=== PATIENT | male | born 1990 | race Caucasian/White ===

== ENCOUNTER 2017-02-12 15:44 | Observation (INO) | payer SELFPAY ==
--- NOTE | ~2017-02-12 | DS ---
Unit #: [id number] #: [id number] Patient: AMANDA HOU [id number] [address] [address] [id number] MR#: [id number] NAME: AMANDA HOU ROOM: 226 Age: 26 Sex: M Admission Date: 02/12/2017 : 1990 Discharge Date: 02/13/2017 Attending Physician: Molina Marie M.D. Primary Care Physician: Primary Care Physician No DISCHARGE SUMMARY REASON FOR ADMISSION 1. Bloody/discharge from penis. 2. Poorly-controlled diabetes. HISTORY/HOSPITAL COURSE Please see History and Physical for complete details. Patient underwent routine laboratory studies, many of them are currently pending including RPR as well as urine for gonorrhea and chlamydia which is currently pending at the present time. He received Zithromax as well as Rocephin while he was here. His discharge has resolved. He does have some discomfort with urination and, therefore, I will give him a prescription for Pyridium, doxycycline, as well at time of discharge. He tells me that he does not have a primary care physician, therefore, we will give him the phone number for [facility] for appropriate followup. I have also given a prescription for metformin 850 mg p.o. b.i.d. at time of discharge. His hemoglobin A1c is currently pending at the time of this dictation. In the past, he was diagnosed with diabetes and medications were later discontinued after his blood sugars were persistently low. FINAL DISCHARGE DIAGNOSES 1. Diabetes type 2. 2. Penile discharge, likely secondary to STD with cultures currently pending. 3. Noncompliance. 4. Obesity. FINAL DISCHARGE MEDICATIONS 1. Metformin 850 mg p.o. b.i.d. 2. Doxycycline 100 mg p.o. b.i.d. times 7 days. 3. Pyridium 200 mg p.o. b.i.d. times 3 days. CONDITION ON DISCHARGE Stable. DISCHARGE DISPOSITION Home. Dictated by... Unit #: [id number] #: [id number] Patient: AMANDA HOU Joanne Velázquez/romero TD: 02/14/2017 20:59 JOB #: [id number] DISCHARGE SUMMARY Page 1 of 1 X Molina Marie MD DISCHARGE SUMMARY
--- NOTE | ~2017-02-12 | HP ---
Unit #: [id number] #: [id number] Patient: AMANDA HOU [id number] [address] [place], [place] [address] [id number] MR#: [id number] NAME: AMANDA HOU ROOM: Age: 26 Sex: M Admission Date: 02/12/2017 : 1990 Attending Physician: Danna Ellison M.D. HISTORY AND PHYSICAL CHIEF COMPLAINT Penile discharge, uncontrolled diet-controlled diabetes mellitus. HISTORY This pleasant 26-year-old male with a history of diet-controlled diabetes mellitus is admitted for penile discharge and hyperglycemia. The patient states that he was well until recently when he developed some blurred vision. Four days ago, he developed urinary frequency and then bloody-appearing, yellow penile discharge with dysuria. He presented to the emergency department with a low-grade temperature, although he denies fever, sweats, or chills. Serum glucose 392. In the ER, he was bolused with two liters of saline and given a gram of Zithromax and two grams of IV Rocephin, and referred for admission. PAST MEDICAL HISTORY 1. Admission October 09, 2014, for a one-time seizure. 2. Adult-onset diabetes mellitus diagnosed October 09, 2014, at this facility. Patient states that he took oral hypoglycemics until eight months ago when these were discontinued as his Accu-Cheks were running 110 and lower. 3. I and D of the hand as a child. ALLERGIES None. HOME MEDICATIONS None. FAMILY HISTORY Diabetes mellitus. SOCIAL HISTORY The patient lives in a room and rents out the other rooms to roommates from [place]. He himself is from [place]. He is with three children. He smokes occasional tobacco and drinks occasional alcohol. REVIEW OF SYSTEMS Notable for urinary frequency, dysuria, bloody penile discharge, headache, blurred vision, diabetes, one-time seizure, and hand surgery. All other systems were reviewed and are otherwise negative. PHYSICAL EXAMINATION GENERAL: A pleasant, obese, 26-year-old male currently in no acute Unit #: [id number] #: [id number] Patient: AMANDA HOU distress. VITAL SIGNS: Temperature 99.1, pulse 90, respirations 16, blood pressure 153/58, and O2 saturation is 98% on room air. HEENT: Eyes PERRLA. Extraocular muscles are intact. Pharynx is benign. NECK: Supple without adenopathy or thyromegaly. CHEST: Clear. CARDIAC: Normal S1 and S2, without S3, S4, or murmur. ABDOMEN: Bowel sounds are present. No hepatosplenomegaly, tenderness, or masses. GENITOURINARY: Uncircumcised penis. When the foreskin is pulled back, the patient has copious amounts of yellowish penile discharge. Testicles are descended bilaterally and nontender. EXTREMITIES: Without clubbing, cyanosis, or edema. Pedal pulses are present. No ulcers on the feet. NEUROLOGIC: Patient is awake, alert, and oriented. Cranial nerves are intact. Equal strength throughout. BACK: Without CVA tenderness. DIAGNOSTIC STUDIES LABORATORY: Hematocrit is 47.4, white blood count is 10.7, and normal platelet count. SMA-12 with glucose of 392 and AST is 58. Chlamydia and GC probes are pending. Urinalysis with positive leukocyte esterase, protein, and glucose, 2+ blood with 25-50 red cells and enumerable white cells, and no bacteria. IMAGING: CT scan of the pelvis with IV contrast negative. ASSESSMENT 1. Bloody penile discharge likely representing gonorrhea. 2. Diet-controlled adult-onset diabetes mellitus with uncontrolled diabetes mellitus. PLANS 1. P.o. Zithromax given in the ER. 2. Continue Rocephin pending urine cultures and STD screening. 3. Obtain HIV and RPR. 4. Sliding scale insulin for now. Can transition to metformin at discharge. Will check a hemoglobin A1c. 5. Patient desires the name of a urologist at the time of discharge for elective circumcision. 1. Dictated by Joanne Smith/justine TD: 02/12/2017 21:32 JOB #: [id number] Unit #: [id number] #: [id number] Patient: AMANDA HOU HISTORY AND PHYSICAL Page 1 of 1 X Riri Eddy MD X HISTORY AND PHYSICAL
--- NOTE | ~2017-02-12 | CT105 ---
[facility] A Service of [facility] RADIOLOGY TEXT RESULTS PATIENT: AMANDA HOU LOCATION: [facility] : [birth year] UNIT #: [id number] AGE: [address]: Molina Marie MD SEX: M ORDER DR: [id number] [facility] [address]. [place], [place] [address] [id number] MR#: [id number] Acc #: [id number] NAME: AMANDA HOU : 1990 SEX: M STUDY DATE/TIME: 02/12/2017 17:46 UNIT: [facility] ROOM: [facility] STUDY DESCRIPTION: CT Pelvis W Cont Attending Physician: Riri Eddy M.D. Ordering Physician: Danna Ellison M.D. Primary Care Physician: Primary Care Physician No MEDICAL IMAGING REPORT This report is preliminary unless electronic signature is present EXAM CT pelvis without contrast HISTORY Penile discharge, blood in urine since 02/09/2017. FINDINGS This CT exam was performed with one or more of the following radiation dose reduction techniques: Automatic exposure control, adjustment of mA and/or kV according to patient size, and iterative reconstruction. Axial images performed through the pelvis following IV contrast. Multiplanar reconstructed images reviewed at a workstation. Visualized small and large bowel appears normal. The appendix is normal. Bladder and prostate unremarkable. Normal vascular enhancement. Osseous structures and soft tissues appear normal. No evidence of renal stone or obstruction. Visualized genitalia unremarkable. IMPRESSION Normal CT pelvis. Dictated by... Brittani Jara M.D. THIS IS AN ELECTRONICALLY VERIFIED REPORT Brittani Jara M.D. at 02/13/2017 3:32 PM SHARON/hien TD: 02/13/2017 03:44 JOB #: [id number] [facility] A Service of [facility] RADIOLOGY TEXT RESULTS PATIENT: AMANDA HOU LOCATION: [facility] : [birth year] UNIT #: [id number] AGE: [address]: Molina Marie MD SEX: M ORDER DR: MEDICAL IMAGING REPORT Page 1 of 1 COPY
--- NOTE | ~2017-02-12 | BMI ---
[facility] DATE: 02/13/17 Patient: AMANDA HOU Physician: OFELIA Address: [address] [place] [address] Room/Bed: [address] [place] [address], Zip: [place] [address] Admit Date: 02/12/17 Date of : [birth year] Height: 5 10 Weight: 283 128.8 HIGH BMI NOTE: DX: 26 Y.O. MALE ADMITTED FOR UNCONTROLLED DM, PENILE DISCHARGE ANTHROPOMETRICS: 5'10", WT: 283# (129 KG), BMI: 40.6 DIET: CC INTERVENTION: 1. CC DIET RECOMMENDATIONS: 1. CONTINUE CURRENT DIET ORDER ABOVE TO PROMOTE GRADUAL WEIGHT LOSS TOWARDS HEALTHY BMI (19.0-25.0) OR +/-10%IBW RD WILL F/U PER PROTOCOL Respectfully, DANA GOODE MS, RD, LD [facility] cc: client file
[~2017-02-12 15:44] MED LIST: GLYBURIDE2.5 M1 PO; METFORMIN HCL500 M1 PO; NO MEDICATIONS
[2017-02-12 15:48] LABS: URINE SOURCE CLEAN CATCH
[2017-02-12 15:53] LABS: URINE APPEARANCE CLOUDY; URINE BILIRUBIN NEG (NEG); URINE BLOOD 2+ (NEG); URINE COLOR YELLOW; URINE GLUCOSE >1000 MG/DL (NEG); URINE KETONE NEG (NEG); URINE LEUKOCYTE ESTERASE 2+ (NEG); URINE NITRATE NEG (NEG); URINE PROTEIN 1+ (NEG); URINE SPECIFIC GRAVITY 1.038 (1.003-1.035)
[2017-02-12 15:57] LABS: CULTURE INDICATED? YES; U HYALINE CASTS AUWI 0-2 /[LPF]; URBCS1 AUWI 25-50 /[HPF] (0-2); URINE BACTERIA AUWI NEG (NEGATIVE); URINE SQUAMOUS EPITHELIAL CELL NONE SEEN /[HPF]; UWBCS1 AUWI INNUM (0-5)
[2017-02-12 16:11] LABS: BASOPHIL# 0.1 X10e3 (0-0.3); BASOPHIL% 0.8 % (0-2.5); EOSINOPHIL# 0.2 X10e3 (0-0.7); EOSINOPHIL% 1.9 % (0.0-7.0); HEMATOCRIT 47.4 % (38.0-50.0); LYMPHOCYTE# 2.5 X10e3 (1.0-3.5); LYMPHOCYTE% 23.1 % (17.0-45.0); MEAN CELL VOLUME 91.1 FL (83-96); MEAN CORPUSCULAR HEMOGLOBIN 30.8 PG (28-34); MEAN CORPUSCULAR HGB CONC 33.8 g/dL (30-36); MONOCYTE# 0.6 X10e3 (0-1.0); MONOCYTE% 6.1 % (3.0-12.0); NEUTROPHIL# 7.3 X10e3 (1.5-7.1); NEUTROPHIL% 68.1 % (40-75); PLATELET COUNT 183 X10e3 (140-420); RED CELL DISTRIBUTION WIDTH 13.2 % (11.0-15.5); WHITE BLOOD COUNT 10.7 X10e3 (4.0-10.5)
[2017-02-12 16:15] LABS: DIFF IND YES
[2017-02-12 16:33] LABS: ALBUMIN SERUM 4.2 g/dL (3.5-5.0); BILIRUBIN,TOTAL 0.7 mg/dL (0.2-2.0); BUN/CREATININE RATIO 17.5; CALCIUM SERUM 8.9 mg/dL (8.4-10.2); CREATININE SERUM 0.8 mg/dL (0.6-1.4); GLOM FILT RATE Estimated 121.6 mL/min (>60); POTASSIUM 4.1 mmol/L (3.5-5.1); PROTEIN TOTAL SERUM 7.7 g/dL (6.0-8.3)
[2017-02-12 16:53] LABS: PLATELET ESTIMATE NORMAL (NORMAL)
[2017-02-13 07:14] LABS: BASOPHIL% 0.4 % (0-2.5); EOSINOPHIL# 0.3 X10e3 (0-0.7); EOSINOPHIL% 3.3 % (0.0-7.0); HEMATOCRIT 43.5 % (38.0-50.0); HEMOGLOBIN 14.5 gm/dL (13.0-16.0); LYMPHOCYTE# 2.9 X10e3 (1.0-3.5); LYMPHOCYTE% 35.2 % (17.0-45.0); MEAN CELL VOLUME 91.2 FL (83-96); MEAN CORPUSCULAR HEMOGLOBIN 30.3 PG (28-34); MEAN CORPUSCULAR HGB CONC 33.2 g/dL (30-36); MEAN PLATELET VOLUME 9.7 FL (6.5-11.5); MONOCYTE# 0.6 X10e3 (0-1.0); MONOCYTE% 7.3 % (3.0-12.0); NEUTROPHIL# 4.5 X10e3 (1.5-7.1); NEUTROPHIL% 53.8 % (40-75); PLATELET COUNT 165 X10e3 (140-420); RED BLOOD COUNT 4.77 X10e (3.90-5.60); RED CELL DISTRIBUTION WIDTH 13.1 % (11.0-15.5); WHITE BLOOD COUNT 8.4 X10e3 (4.0-10.5)
[2017-02-13 07:22] LABS: DIFF IND NO
[2017-02-13 07:59] LABS: BUN/CREATININE RATIO 18.33; CALCIUM SERUM 8.1 mg/dL (8.4-10.2); CREATININE SERUM 0.6 mg/dL (0.6-1.4); GLOM FILT RATE Estimated 136.9 mL/min (>60); POTASSIUM 3.8 mmol/L (3.5-5.1)
[2017-02-13] MEDS ORDERED: TYL325 PO (12:07)
[2017-02-13] MEDS ORDERED: DOXYCYCLINE HY100 M3 PO (12:08)
[2017-02-13] MEDS ORDERED: GLUCOPHAGE850 MG PO (12:10)
[2017-02-13] MEDS ORDERED: PYRIDIUM PO (12:10)
[2017-02-15 02:31] LABS: CHLAMYDIA TRACH Not Detected (Not Detected); N GONOR Detected (Not Detected)
== END 2017-02-13 14:16 | disposition home or self-care (01) | DRG 696 ==
LOC: CED 15:44 → CEDOF 21:15 → C2A 02-13 00:01
PROVIDERS: Internal Medicine; Nurse Practitioner Family
DX: R36.9 Urethral discharge, unspecified (principal); E11.65 Type 2 diabetes mellitus with hyperglycemia; Z91.14 Patient's other noncompliance with medication regimen; E66.9 Obesity, unspecified; Z83.3 Family history of diabetes mellitus; Z79.2 Long term (current) use of antibiotics; Z72.0 Tobacco use; R35.0 Frequency of micturition; H53.8 Other visual disturbances
CPT/HCPCS: 36415; 72193; 80048; 80053; 81003; 82947; 83036; 85025; 86592; 87086; 87088; 87491; 87591; 87806; 96360; 96361; 96365; 99285; G0378; J0696; J1815; Q9967

== ENCOUNTER → 2017-02-21 | Outpatient (CLI) | payer SELFPAY ==
[~2017-02-21] MED LIST changes: +DOXYCYCLINE HY100 M3 PO; +GLUCOPHAGE850 MG PO; +PYRIDIUM PO; +TYL325 PO
[2017-02-23 19:22] LABS: CHLAMYDIA TRACH Not Detected (Not Detected); N GONOR Not Detected (Not Detected)
== END | disposition home or self-care (01) ==
LOC: CBAR 09:37
PROVIDERS: Nurse Practitioner
DX: A54.9 Gonococcal infection, unspecified (principal); Z77.21 Contact with and (suspected) exposure to potentially hazardous body fluids; E11.9 Type 2 diabetes mellitus without complications; R30.0 Dysuria
CPT/HCPCS: 82947; 87491; 87591